=== PATIENT | male | born 1945 | race Two or more races ===

== ENCOUNTER 2016-12-10 17:44 | Inpatient (IN) | payer MEDICARE, OTHER ==
[~2016-12-10] VITALS: Ht 175.3 cm; Wt 79.4 kg
[2016-12-10] MEDS ORDERED: MORPHINE SULFATE INJ 2 MG/ML DISP.SYRIN IV ONE (18:00)
[2016-12-10] MEDS ORDERED: ONDANSETRON HCL/PF 4 MG/2 ML VIAL IVP ONE (18:00)
[2016-12-10] MEDS ORDERED: IV NS 0.9% 1,000 ML BAG IV ONE ×2 (18:00→19:00)
--- NOTE | 2016-12-10 18:00 | NUR ---
PATIENT BIB RA D/T LEFT LOWER EXTREMITY PAIN AND DIARRHEA X 5 DAYS. PATIENT IS A/OX 3. BREATHING EVEN AND UNLABORED ON ROOM AIR. NO SOB. BP RUNNING LOW, SBP 80'S. SAFETY AND COMFORT MEASURES IN PLACE. AWAITING MD ORDERS.
[2016-12-10] MEDS ORDERED: IV SET PRIMARY 1 EA INFUS.SET MC ONE (18:06)
[2016-12-10] MEDS ORDERED: IV NS 0.9% 1,000 ML ONE ×2 (18:06→18:57)
[2016-12-10] MEDS ORDERED: MORPHINE SULFATE INJ 4 MG/ML DISP.SYRIN ONE (18:06)
[2016-12-10] MEDS ORDERED: ONDANSETRON HCL/PF 4 MG/2 ML VIAL ONE (18:06)
[2016-12-10 18:09] LABS: BASOPHILS # (AUTO) 0.1 /CMM (0.0-0.2); BASOPHILS % (AUTO) 0.4 % (0.0-2.0); EOSINOPHILS % (AUTO) 0.2 % (0.0-6.0); HEMATOCRIT 35 % (39-51); HEMOGLOBIN 11.8 g/dL (13.5-17.5); LYMPHOCYTES # (AUTO) 3.4 /CMM (0.8-4.8); MEAN CORPUSCULAR HEMOGLOBIN 31 PG (26.0-33.0); MEAN CORPUSCULAR HGB CONC 34 g/dl (31.0-36.0); MEAN CORPUSCULAR VOLUME 92 fL (80-96); MONOCYTES % (AUTO) 6.1 % (2.0-12.0); NEUTROPHILS # (AUTO) 12.4 /CMM (1.8-8.9); NEUTROPHILS % (AUTO) 73.3 % (43.0-81.0); PLATELET COUNT (AUTO) 595 /CMM (150-450); RDW COEFFICIENT OF VARIATION 14.6 (11.5-15.0); RED BLOOD CELL COUNT(AUTO) 3.75 MIL/uL (4.5-6.0); WHITE BLOOD COUNT (AUTO) 16.9 K/uL (4.3-11.0)
--- NOTE | 2016-12-10 18:10 | NUR ---
NEW IV INSERTED ON RIGHT FOREARM, 20 G. BLOOD DRAWN AND SENT TO LAB.
--- NOTE | 2016-12-10 18:20 | NUR ---
SECOND IV STARTED ON LEFT FOREARM, 18 G.
[2016-12-10 18:24] LABS: INR 1.1 (0.87-1.13); PROTHROMBIN TIME 11.5 SECS (9.5-12.7)
[2016-12-10 18:26] LABS: ALBUMIN 2.7 g/dL (3.4-5.0); BILIRUBIN,DIRECT 0.9 mg/dL (0.0-0.2); BILIRUBIN,TOTAL 1.4 mg/dL (0.2-1.0); CALCIUM, SERUM 8.5 mg/dL (8.5-10.1); CREATININE 2.2 mg/dL (0.6-1.3); TOTAL PROTEIN, SERUM 7.3 g/dL (6.4-8.2)
[2016-12-10 18:27] LABS: POTASSIUM 2.6 mmol/L (3.5-5.1)
--- NOTE | 2016-12-10 18:27 | NUR ---
NOTIFIED OF CRITICAL K+ 2.7 AND BUN 108.
--- NOTE | 2016-12-10 18:52 | NUR ---
MCKEON CATH INSERTED, 16 FR. 15ML URINE OUTPUT, LIGHT YELLOW, CLEAR.
--- NOTE | 2016-12-10 18:54 | NUR ---
XR AT BEDSIDE
[2016-12-10] MEDS ORDERED: POTASSIUM CL. PREMIX PERIPHER. 50 ML ONE ×4 (18:56→21:23)
[2016-12-10] MEDS ORDERED: IV SET PRIMARY PUMP SET 1 EA INFUS.SET MC ONE ×2 (18:57→21:21)
--- NOTE | 2016-12-10 18:59 | NUR ---
CALLED NURSING SUP. FOR TELE BED
--- NOTE | 2016-12-10 19:03 | NUR ---
CALLED (ORTHO DIRECTOR MEDICAL AFFAIRS), TRANSFERRED CALL TO
--- NOTE | 2016-12-10 19:04 | NUR ---
REPORT REC'D FROM NEVILLE ROSE FOR JOSH.
[2016-12-10] MEDS: POTASSIUM CL. PREMIX PERIPHER. 50 ML IV SCH ×4 (19:08→22:00)
--- NOTE | 2016-12-10 19:10 | NUR ---
ABILIO PAGED, ROB BROWN PAPER SORTER AND COUNTER
--- NOTE | 2016-12-10 19:16 | NUR ---
URINE OBTAINED AND SENT TO LAB.
--- NOTE | 2016-12-10 19:16 | NUR ---
REPORT GIVEN TO CARIE FOR JOSH.
[2016-12-10 19:17] LABS: APPEARANCE,URINE Clear (CLEAR); BILIRUBIN,URINE LARGE (NEGATIVE); BLOOD, URINE Small Ery/uL (NEGATIVE); COLOR,URINE Yellow (YELLOW); KETONES,URINE Trace (NEGATIVE); LEUKOCYTE ESTERASE ,URINE Negative (NEGATIVE); NITRITE, URINE Negative (NEGATIVE); PROTEIN,URINE 30 mg/dl (NEGATIVE); UGLUCOSE Negative (NEGATIVE)
[2016-12-10 19:31] LABS: RBC,URINE 0-2 /HPF (0-2); WBC,URINE 0-2 /HPF (0-3)
[2016-12-10 19:32] LABS: BACTERIA,URINE Moderate /HPF (None Seen); SQUAMOUS EPITHELIAL CELL,UR Few /HPF (None Seen)
--- NOTE | 2016-12-10 19:32 | NUR ---
[facility] REPAGED
--- NOTE | 2016-12-10 19:37 | NUR ---
DR. ESCOBAR IS SPEAKING TO Kimberly BROWN DNP.
--- NOTE | 2016-12-10 20:00 | NUR ---
CALLING REPORT TO TELE NURSE.
[2016-12-10] MEDS ORDERED: ONDANSETRON HCL/PF 4 MG/2 ML VIAL IVP PRN (20:30)
[2016-12-10] MEDS ORDERED: Z GUARD REMEDY 2 OZ OINT TP PRN (20:30)
[2016-12-10] MEDS ORDERED: ACETAMINOPHEN 325 MG TABLET PO PRN (20:30)
--- NOTE | 2016-12-10 20:30 | NUR ---
TELE/RN RECEIVE PATIENT FROM E.R. ACCOMPANIED BY FAMILY MEMBERS AWAKE, ALERT, ORIENTED, COMFORTABLE, NO C/O PAIN, NO SIGNS OF DISTRESS NOTED. ADMISSION DONE PER PROTOCOL, SKIN ASSESSMENT DONE, PHOTOS TAKEN ON ABNORMAL SKIN FINDINGS, TAUGHT THE USE OF CALL LIGHT, FALL PRECAUTION, INSTRUCTED TO USE CALL LIGHT IF HE NEEDS ASSISTANCE, VERBALIZED UNDERSTANDING. WILL MONITOR.
--- NOTE | 2016-12-10 20:41 | NUR ---
ENDORSED 4TH BAG OF POTASSIUM 10 MEQ TO TELE NURSE, NEVILLE ADAMES
[2016-12-10] MEDS ORDERED: POTASSIUM CHLORIDE 10 MEQ/50 ML PREMIXED IVPB FOR PERIPHERAL LINE IV ONE (21:30)
[2016-12-10] MEDS: Potassium Chloride 40 MEQ in IV NS 0.9% 1,000 ML IV PRN (21:40)
[2016-12-10] MEDS ORDERED: MORPHINE SULFATE INJ 2 MG/ML DISP.SYRIN ONE (21:52)
[2016-12-10] MEDS: MORPHINE SULFATE INJ 2 MG/ML DISP.SYRIN IV PRN (22:02)
[2016-12-10 22:20] VITALS: BP 103/59
--- NOTE | 2016-12-10 22:48 | NUR ---
TELE/RN POTASSIUM 10 MEQ IV NOT GIVEN, IT IS A DUPLICATE ORDER. MD ORDER IS 40 MEQ.
--- NOTE | 2016-12-11 00:56 | NUR ---
TELE/RN PATIENT SLEEPING AT THIS TIME, AROUSABLE, NO SIGNS OF DISTRESS NOTED, CALL LIGHT IN REACH.WILL CONTINUE TO MONITOR.
[2016-12-11 01:04] VITALS: BP 110/68
[2016-12-11] MEDS ORDERED: METRONIDAZOLE 500MG/ NS 100ML 500 MG in PREMIX 1 EA IV SCH ×2 (01:30→06:40)
[2016-12-11] MEDS ORDERED: LEVOFLOXACIN 500 MG /D5W 100ML 500 MG in PREMIX 1 EA IV SCH (01:30)
[2016-12-11] MEDS ORDERED: SECONDARY IV SET 1 EA INFUS.SET MC ONE ×3 (02:46→23:54)
[2016-12-11] MEDS ORDERED: LEVOFLOXACIN 500 MG /D5W 100ML 100 ML IV ONE (02:53)
[2016-12-11] MEDS ORDERED: METRONIDAZOLE 500MG/ NS 100ML 100 ML IV ONE (02:54)
[2016-12-11 02:59] LABS: EOSINOPHILS # (AUTO) 0.1 /CMM (0.0-0.7); EOSINOPHILS % (AUTO) 0.6 % (0.0-6.0); HEMATOCRIT 28 % (39-51); HEMOGLOBIN 9.6 g/dL (13.5-17.5); LYMPHOCYTES # (AUTO) 2.4 /CMM (0.8-4.8); LYMPHOCYTES % (AUTO) 14.5 % (20.0-44.0); MEAN CORPUSCULAR HEMOGLOBIN 32 PG (26.0-33.0); MEAN CORPUSCULAR HGB CONC 34 g/dl (31.0-36.0); MEAN CORPUSCULAR VOLUME 92 fL (80-96); MONOCYTES # (AUTO) 0.3 /CMM (0.1-1.30); MONOCYTES % (AUTO) 1.8 % (2.0-12.0); NEUTROPHILS # (AUTO) 13.9 /CMM (1.8-8.9); NEUTROPHILS % (AUTO) 83.1 % (43.0-81.0); PLATELET COUNT (AUTO) 426 /CMM (150-450); RED BLOOD CELL COUNT(AUTO) 3.05 MIL/uL (4.5-6.0); WHITE BLOOD COUNT (AUTO) 16.7 K/uL (4.3-11.0)
[2016-12-11 03:10] LABS: ALBUMIN 2.3 g/dL (3.4-5.0); CREATININE 1.7 mg/dL (0.6-1.3); MAGNESIUM 1.8 mg/dL (1.8-2.4); PHOSPHORUS 3.9 mg/dL (2.5-4.9); POTASSIUM 3.3 mmol/L (3.5-5.1); TOTAL PROTEIN, SERUM 6.1 g/dL (6.4-8.2)
[2016-12-11] MEDS: Potassium Chloride 40 MEQ in IV NS 0.9% 1,000 ML IV PRN (04:25)
[2016-12-11 04:45] VITALS: BP 96/58
[2016-12-11 04:48] LABS: THYROID STIMULATING HORMONE 0.706 uIU/mL (0.358-3.74)
--- NOTE | 2016-12-11 06:36 | NUR ---
TELE/RN AWAKE, ALERT, ORIENTED, COMFORTABLE, NO CHANGE IN CONDITION. ALL NEEDS ATTENDED AT THIS TIME. WILL CONTINUE TO MONITOR.
[2016-12-11] MEDS ORDERED: PANTOPRAZOLE 40 MG TABLET.DR PO SCH (07:30)
[2016-12-11] MEDS: METRONIDAZOLE 500MG/ NS 100ML 500 MG in PREMIX 1 EA IV SCH ×3 (07:34→21:42)
[2016-12-11 08:00] VITALS: BP_SYST 94; BP_DIAS 54; BP_DIAS 59
[2016-12-11] MEDS: HEPARIN SODIUM, PORCINE 5000 UNITS/1 ML VIAL SQ SCH ×2 (11:00→21:00)
--- NOTE | 2016-12-11 11:36 | NUR ---
WOUND CARE CONSULT: PT PRESENTS WITH DEEP TISSUE INJURIES WHICH ARE INTACT TO BILAT HEELS AND LEFT LATERAL ANKLE, PRESENT ON ADMISSION. PT REFUSED TO TURN FOR FULL SKIN ASSESSMENT BUT SACRAL AREA PHOTO SHOWS PURPLE AREA, SUGGESTING DTI, PRESENT ON ADMISSION. RECOMMENDATIONS MADE FOR SKIN PROTECTION. DISCUSSED WITH NURSING STAFF. PT ON MODESTA COMFORT GEL MATTRESS. RECOMMEND LOW AIRLOSS BED TO BE PLACED WHEN AVAILABLE. WILL SEE PRN. CHO IN AGREEMENT WITH PLAN OF CARE. Addendum: 12/11/16 at 1139 by RIVAS AGUILAR WNDNU Amended: Links added.
[2016-12-11 16:00] VITALS: BP 105/59
[2016-12-11] MEDS: MORPHINE SULFATE INJ 2 MG/ML DISP.SYRIN IV PRN (18:01)
[2016-12-11 18:32] VITALS: BP 94/59
--- NOTE | 2016-12-11 19:06 | NUR ---
PATIENT NOTED IN A STABLE CONDITION.ALL DUE MEDS WELL NURSING CARE GIVEN AND WELL TOLERATED.PAIN MEDICATION GIVEN AT 1801.PATIENT TOLERATED MEDICATION WELL..CONSENT NOTED IN ORDERS FOR INTRAMEDULLARY RODDING OF LEFT HIP.CDIFF RESULT IS STIL PENDING AT THIS TIME.REPORT GIVEN TO INCOMING NURSE .PATIENT IS NOTED STABLE
--- NOTE | 2016-12-11 19:30 | NUR ---
CULLET CRUSHER NOTE: PATIENT RESTING IN BED, NO ACUTE DISTRESS NOTED, FAMILY AT BEDSIDE. BREATHING EVEN AND UNLABORED, NO SOB NOTED. IV TO RFA IN PLACE, INFUSING NS WITH 40 MEQ KCL AT 125ML/HR. TELE READING SR 89. MCKEON CATHETER IN PLACE, EMPTY AT THIS TIME. PATIENT FOR PROCEDURE IN MORNING, INFORMED THAT PATIENT CAN NOT EAT OR DRINK AFTER MIDNIGHT. CONSENT TO BE SIGNED BY SON. ISOLATION PRECAUTION OBSERVED. BED LOCKED AND IN LOWEST POSITION, CALL LIGHT IN REACH. WILL CONTINUE TO MONITOR.
--- NOTE | 2016-12-11 20:30 | NUR ---
ELECTRONIC SEMICONDUCTOR PROCESSOR NOTE: PATIENT SON, NABIL, SIGNED CONSENT FOR INTRAMEDULLARY RODDING LEFT HIP PROCEDURE FOR TOMORROW MORNING. QUESTIONS ASKED REGARDING PROCEDURE INFORMED THAT MD WITH GO OVER MORE DETAILS OF PROCEDURE TOMORROW. FORMS FILED IN CHART. WILL CONTINUE TO MONITOR
[2016-12-11 20:52] VITALS: BP 105/62
[2016-12-11] MEDS ORDERED: LEVOFLOXACIN 250 MG /D5W 50 ML 250 MG in PREMIX 1 EA IV SCH (23:00)
[2016-12-12] VITALS (33 sets, daily range): BP systolic 85–130; BP diastolic 53–75
[2016-12-12] MEDS: METRONIDAZOLE 500MG/ NS 100ML 500 MG in PREMIX 1 EA IV SCH (05:52)
--- NOTE | 2016-12-12 06:05 | NUR ---
SHOW DOG TRAINER NOTE: PATIENT RESTING IN BED, NO ACUTE DISTRESS NOTED, FAMILY AT BEDSIDE. BREATHING EVEN AND UNLABORED, NO SOB NOTED. IV TO LFA IN PLACE, INFUSING NS WITH 40 MEQ KCL AT 125ML/HR. TELE READING SR 75. MCKEON CATHETER IN PLACE. PATIENT NPO SINCE MIDNIGHT FOR PROCEDURE IN MORNING. CONSENT SIGNED BY SON, IN CHART. ISOLATION PRECAUTION OBSERVED. BED LOCKED AND IN LOWEST POSITION, CALL LIGHT IN REACH. WILL ENDORSE TO DAY NURSE TO CONTINUE WITH PLAN OF CARE.
[2016-12-12 07:11] LABS: BASOPHILS % (AUTO) 0.1 % (0.0-2.0); EOSINOPHILS # (AUTO) 0.1 /CMM (0.0-0.7); EOSINOPHILS % (AUTO) 0.5 % (0.0-6.0); HEMATOCRIT 27 % (39-51); HEMOGLOBIN 8.9 g/dL (13.5-17.5); LYMPHOCYTES # (AUTO) 2.2 /CMM (0.8-4.8); LYMPHOCYTES % (AUTO) 14.2 % (20.0-44.0); MEAN CORPUSCULAR HEMOGLOBIN 32 PG (26.0-33.0); MEAN CORPUSCULAR HGB CONC 34 g/dl (31.0-36.0); MEAN CORPUSCULAR VOLUME 93 fL (80-96); MONOCYTES # (AUTO) 0.8 /CMM (0.1-1.30); MONOCYTES % (AUTO) 4.8 % (2.0-12.0); NEUTROPHILS # (AUTO) 12.7 /CMM (1.8-8.9); NEUTROPHILS % (AUTO) 80.4 % (43.0-81.0); PLATELET COUNT (AUTO) 356 /CMM (150-450); RDW COEFFICIENT OF VARIATION 15.6 (11.5-15.0); RED BLOOD CELL COUNT(AUTO) 2.84 MIL/uL (4.5-6.0); WHITE BLOOD COUNT (AUTO) 15.8 K/uL (4.3-11.0)
[2016-12-12 07:28] LABS: BILIRUBIN,TOTAL 0.7 mg/dL (0.2-1.0); CALCIUM, SERUM 8.2 mg/dL (8.5-10.1); CREATININE 1.1 mg/dL (0.6-1.3); MAGNESIUM 1.5 mg/dL (1.8-2.4); PHOSPHORUS 2.1 mg/dL (2.5-4.9); POTASSIUM 3.1 mmol/L (3.5-5.1); TOTAL PROTEIN, SERUM 5.6 g/dL (6.4-8.2)
[2016-12-12] MEDS ORDERED: BACITRACIN 50000 UNITS/VIAL ONE (07:40)
--- NOTE | 2016-12-12 07:43 | NUR ---
TELE/RN OPENING NOTES PT. IS IN BED AWAKE, A&OX3. SON IS AT BEDSIDE. TELE MONITOR READING SINUS RHYTHM WITH OCCASIONAL PJC'S AT 82 BPM. PT. IS NPO FOR SURGERY. PT. IS BREATHING UNLABORED ON ROOM AIR. NO S/S OF ACUTE DISTRESS. IV FLUIDS RUNNING AT 125 ML/HR. PT.'S SURGICAL PACKET CONSENT IS SIGNED AND COMPLETED. HEPARIN WAS HELD. PT. HAS MCKEON CATHETER WITH 250 ML OUTPUT OF CLEAR, AND GHAZALA URINE. BED IS IN LOW POSITION, 2 SIDE RAILS UP, AND CALL LIGHT WITHIN REACH. PT. IS PLANNED TO HAVE SURGERY AT 0800.
--- NOTE | 2016-12-12 08:04 | NUR ---
TELE/RN PT. LEFT ROOM PT. LEFT ROOM FOR SURGERY. MCKEON OUTPUT 700 ML OF CLEAR, GHAZALA URINE. PT. WAS CLEANED AND DIAPER WAS CHANGED. PT. HAD 1 BOWEL MOVEMENT.
[2016-12-12] MEDS ORDERED: ANESTHESIA TRAY IN PYXIS 1 EA TRAY MC ONE (10:13)
[2016-12-12] MEDS ORDERED: FENTANYL PF 100MCG/2ML AMPUL ONE (10:15)
--- NOTE | 2016-12-12 10:49 | NUR ---
CALLED DOWN FOR PATIENT , NURSE STATED HE WAS IN SURGERY, AND TO BE TRANSFERED TO ICU. CALLED, ICU PATIENT HAD NOT ARRIVED YET. ASKED TO BE CALLED WHEN PATIENT IS READY FOR EXAM.
--- NOTE | 2016-12-12 10:50 | NUR ---
FELT PAD CUTTER; TRANSFER TRANSFER IN PT S/P LEFT HIP SURGERY. PT PLACED ON CARDIAC MONITO SHOWING SINUS TACHY CARDIA, LOW B/P NOTED. PT CURRENTLY RECEIVING IV NORMAL SALINE BOLUS. PT C/O SEVER ABD PAIN PT IS MOANING AND STATING THAT ABD IS IN A LOT OF PAIN 03/16. WILL REVIEW ORDERS AND NOTIFY PRIMARY REGARDING PTS ABD PAIN AND LOW BP
[2016-12-12] MEDS ORDERED: IV SET PRIMARY PUMP SET 1 EA INFUS.SET MC ONE ×4 (10:56→19:41)
[2016-12-12] MEDS ORDERED: IV NS 0.9% 1,000 ML ONE (10:56)
[2016-12-12] MEDS ORDERED: NOREPINEPHRINE 16 MG in IV D5W 500 ML IV PRN (11:00)
[2016-12-12] MEDS ORDERED: IV NS 0.9% 1,000 ML IV PRN (11:00)
[2016-12-12] MEDS ORDERED: IV NS 0.9% 1,000 ML BAG IV PRN (11:00)
[2016-12-12] MEDS ORDERED: POTASSIUM PHOSPHATE MM 15 MMOL in IV D5W 250 ML IV SCH (11:00)
[2016-12-12 11:13] LABS: ABG BASE EXCESS -11.5 mmol/L; ABG OXYGEN SATURATION 97.4 % (92.0-98.5); ABG PH 7.383 (7.350-7.450); ABG PO2 112.4 mmHg (75.0-100.0); AaDO2 221.6 mmHg; COHb 1.2 % (0.5-1.5); MetHb 0.9 % (0.0-1.5); O2Hb 95.4 % (94.0-97.0); SITE, ABG Right Radial; VENT MODE, BG simple mask
[2016-12-12] MEDS ORDERED: FEE PK DOSING 1 MIN EA MC ONE (11:16)
--- NOTE | 2016-12-12 11:30 | NUR ---
JUNIOR ORACLE DBA; PRIMARY/ CARDIO DR. FERNÁNDEZ AND Colleen ESCUDERO YARDER OPERATOR AT BEDSIDE UPDATE WAS GIVEN. DISCUSSED REGARDING PT ABD PAIN, AND LOW B/P. NEW ORDERS GIVEN TO INSERT NG TUBE AND ONCE IV BOLUS COMPLETED TO START LEVOPHED DRIP IF BLOOD PRESSURE REMAINS LOWER THAN 90. ORDERS ENTERED. PTS SON AT BEDSIDE UPDATE GIVEN.
--- NOTE | 2016-12-12 11:41 | NUR ---
pt's nurse states she will call when pt is more stable.
--- NOTE | 2016-12-12 11:42 | NUR ---
RNICU; GI ATTEMPT TO PLACE NG TUBE UNABLE TO PLACE, UNABLE TO GO TROUGH NASAL PASSAGE WAY. Colleen ESCUDERO CONSTRUCTION SAFETY CONSULTANT AWARE. PT STATES THAT ABD PAIN SUBSIDE.
[2016-12-12 12:08] LABS: HEMATOCRIT 31 % (39-51); HEMOGLOBIN 10.3 g/dL (13.5-17.5); LYMPHOCYTES # (AUTO) 2.7 /CMM (0.8-4.8); LYMPHOCYTES % (AUTO) 6.8 % (20.0-44.0); MEAN CORPUSCULAR HEMOGLOBIN 31 PG (26.0-33.0); MEAN CORPUSCULAR HGB CONC 33 g/dl (31.0-36.0); MEAN CORPUSCULAR VOLUME 94 fL (80-96); MONOCYTES # (AUTO) 0.4 /CMM (0.1-1.30); MONOCYTES % (AUTO) 1.1 % (2.0-12.0); NEUTROPHILS # (AUTO) 35.9 /CMM (1.8-8.9); NEUTROPHILS % (AUTO) 92.1 % (43.0-81.0); PLATELET COUNT (AUTO) 427 /CMM (150-450); RDW COEFFICIENT OF VARIATION 15.8 (11.5-15.0); RED BLOOD CELL COUNT(AUTO) 3.32 MIL/uL (4.5-6.0)
[2016-12-12] MEDS: Magnesium 1GM/D5W 100ML PREMIX 100 ML IV SCH ×2 (12:13→13:56)
[2016-12-12] MEDS: MORPHINE SULFATE INJ 2 MG/ML DISP.SYRIN IV PRN (12:15)
[2016-12-12 12:19] LABS: ALANINE AMINOTRANSFERASE 8 U/L (12-78); ALBUMIN 1.8 g/dL (3.4-5.0); ALKALINE PHOSPHATASE 71 U/L (46-116); AMYLASE 21 U/L (25-115); ASPARTATE AMINOTRANSFERASE 13 U/L (15-37); BILIRUBIN,TOTAL 0.9 mg/dL (0.2-1.0); CALCIUM, SERUM 7.7 mg/dL (8.5-10.1); CARBON DIOXIDE 14 mmol/L (21-32); CHLORIDE 111 mmol/L (98-107); CREATININE 1.2 mg/dL (0.6-1.3); GLUCOSE 158 mg/dL (74-106); LIPASE 65 U/L (73-393); POTASSIUM 2.9 mmol/L (3.5-5.1); SODIUM SERUM 144 mmol/L (136-145); UREA NITROGEN, BLOOD 51 mg/dL (7-18)
[2016-12-12 12:21] LABS: TROPONIN I < 0.017 ng/mL (0.00-0.056)
[2016-12-12] MEDS: VANCOMYCIN 1 GM in IV D5W 250 ML IV SCH (12:41)
[2016-12-12] MEDS: POTASSIUM PHOSPHATE MM 7.5 MMOL in IV D5W 100 ML IV SCH ×2 (12:42→15:42)
[2016-12-12 12:55] LABS: BAND % (MANUAL) 13 % (0.0-5.0); LYMPHOCYTES % (MANUAL) 10 % (16-48); MONOCYTES % (MANUAL) 2 % (0-11.0); NEUTROPHILS % (MANUAL) 75 (42-76)
[2016-12-12] MEDS ORDERED: CT SWABBABLE VALVE TRANS SET 1 EA INFUS.SET MC ONE (12:55)
[2016-12-12] MEDS ORDERED: IV NS 0.9% 250 ML IV ONE (12:55)
[2016-12-12] MEDS ORDERED: IOHEXOL-300 100 ML VIAL IV ONE (12:56)
--- NOTE | 2016-12-12 13:30 | NUR ---
TAX EXAMINER; CT ABD CT OF PELVIS ABD WITH CONTRAST COMPLETED. PT TOLERATED WELL. FAMILY AT BEDSIDE UPDATE WAS GIVEN. DISCUSSED THAT RESULTS OF CT WOULD TAKE A COUPLE OF HRS TO BE READ. PT VERBALIZES UNDERSTANDING.
[2016-12-12] MEDS ORDERED: SECONDARY IV SET 1 EA INFUS.SET MC ONE (13:42)
[2016-12-12] MEDS: IV NS 0.9% 1,000 ML IV PRN (13:55)
[2016-12-12] MEDS: PIPERACILLIN /TAZOBACTAM 3.375 G in IV D5W 50 ML IV SCH ×2 (13:55→17:35)
[2016-12-12] MEDS: POTASSIUM CL. PREMIX PERIPHER. 50 ML IV SCH ×4 (13:56→18:30)
[2016-12-12 14:37] LABS: BILIRUBIN,DIRECT 0.3 mg/dL (0.0-0.2)
--- NOTE | 2016-12-12 14:40 | NUR ---
CT ABDOMEN AND PELVIS D/W RANJANA ESCUDERO, DR CABRERA AND PT'S FAMILY. RANJANA ESCUDERO TO MAKE SURGICAL CONSULT AND INTERVENTIONAL RADIOLOGY ARRANGEMENTS REGARDING CT ABDOMEN FINDINGS. FAMILY WILL NOT CONSENT TO ANY PROCEDURES UNTIL A SURGEON CONSULTS ON THE PT
[2016-12-12] MEDS: PANTOPRAZOLE 40 MG VIAL IV SCH (15:07)
[2016-12-12] MEDS ORDERED: Z GUARD REMEDY 4 OZ OINT TP PRN (16:00)
[2016-12-12] MEDS: MORPHINE SULFATE INJ 4 MG/ML DISP.SYRIN IV PRN ×3 (16:32→22:36)
[2016-12-12 16:40] LABS: INR 1.24 (0.87-1.13); PROTHROMBIN TIME 13.4 SECS (9.5-12.7)
[2016-12-12] MEDS ORDERED: ANCEF 1 GM/50 ML D5W IV SCH ×2 (17:00)
--- NOTE | 2016-12-12 17:03 | NUR ---
RUBBER OFF; PT IS REFUSING TO BE TURNED, DUE TO SEVER PAIN TO HIP. PT PREMEDICATED PRIOR TO REPOSITIONING, EDUCATION GIVEN REGARDING SKIN INTEGRITY, PT CONTINUES TO REFUSE TO BE RE-POSITION. PT ON [facility] CARMEN
--- NOTE | 2016-12-12 19:14 | NUR ---
ASSISTANT ADMINISTRATOR; PT REQUESTING FOR DENTURES. PT BELONGING LIST REVIEWED. TELEMETRY NURSE CALLED. SPOKE WITH LEEROY LOZADA. STATING THAT PT HAD DENTURES IN AM. DENTURES NOT IN PT ROOM IN 3W. PT DID NOT COME WITH DENTURES POST-OP.CONFIRMED WITH FAMILY THAT DENTURES WERE NOT TAKEN HOME. NURSING WATER REUSE PROGRAM MANAGER JINNY MADE AWARE OF MISSING DENTURES.
[2016-12-12] MEDS ORDERED: ALBUMIN 25% 100 ML IV ONE (19:43)
[2016-12-12] MEDS: ALBUMIN 25% 25 GM in PREMIX 1 EA IV SCH (19:48)
--- NOTE | 2016-12-12 20:30 | NUR ---
YOUTH DEVELOPMENT SPECIALIST NOTES RECEIVED PT IN BED, AWAKE, A/O X4. GREENLANDIC SPEAKING. ON ROOM AIR, [place] WELL. S/P LEFT HIP ORIF (12/12/16). RIGHT DORSALIS PEDIS PULSES +3, LEFT DORSALIS PEDIS +2. NO EXCESSIVE BLEEDING NOTED AT THE INCISION LOCATIONS. TELE READS SR IN 80s. PT REPORTED SHARP INTERMITTENT ABDOMINAL PAIN AT RIGHT LOWER QUADRANT OF 8/10 LASTING APPROXIMATELY 30 SECOND EVERY TIME. ABDOMEN SOFT BUT TENDER UPON PALPATION. CT REVEALS ABSCESS AT right perirectal and presacral space. PRN PAIN MED WILL BE GIVEN NEEDED AND TOLERATED. MCKEON CATH IN PLACE, DRAINING WELL TO YELLOW URINE. IV SITES AT LFA 18G AND RFA 20G, RUNNING NS AT 125 ML/HR. HOB SLIGHTLY ELEVATED REQUESTED BY PT. PT REFUSED TO BE TURNED AT THIS TIME EVEN AFTER EDUCATION PROVIDED. PT ALSO REFUSED CBC, BMP, AND LACTIC ACID BLOOD DRAW AT THIS TIME DUE TO INTOLERANCE TO PAIN. PT AGREED TO MIDLINE INSERTION WITH LIDOCAINE BLOOD DRAW ACCESS LINE.
--- NOTE | 2016-12-12 22:15 | NUR ---
PRINCIPAL SECURITY ARCHITECT NOTES CT SPECIALIST JORJE CALLED TO GET PATIENT UPDATES AND CHECK ON CONSENT FOR TOMORROW'S PROCEDURE REGARDING ABDOMINAL ABSCESS. AT THIS TIME, FAMILY HAS NOT SIGNED OR AGREED TO CONSENT. FAMILY WANTS TO TALK TO SURGEON PRIOR PROVIDING CONSENT. DR CORBETT CONTACTED AND MADE AWARE OF SITUATION. PER DR CORBETT, HE WILL BE HERE IN THE MORNING TO DISCUSS POC AND ANSWER QUESTIONS WITH PT AND FAMILY. JORJE CONTACTED AND MADE AWARE OF DR CORBETT'S RESPONSE. PER JORJE, HE WILL BE HERE IN THE MORNING WELL.
--- NOTE | 2016-12-12 22:30 | NUR ---
MUSIC LIBRARY ASSISTANT NOTES PT'S SON AT BEDSIDE. PT AND PT'S SON STILL UNSURE OF BEST OPTION FOR POC. MADE AWARE THAT DR CORBETT AND CT SPECIALIST JORJE WILL BE HERE IN THE MORNING. PT'S SON STATES HE WILL BE HERE AT 0800. PT'S DENTURES STILL NOT FOUND. 3W CONSUMER AFFAIRS SPECIALIST, STATES SHE WILL FOLLOW UP WITH MORNING CONSUMER LENDER TOMORROW.
[2016-12-13] VITALS (46 sets, daily range): BP systolic 90–139; BP diastolic 43–65
[2016-12-13] MEDS: VANCOMYCIN 1 GM in IV D5W 250 ML IV SCH ×3 (00:36→15:15)
[2016-12-13] MEDS: IV NS 0.9% 1,000 ML IV PRN ×2 (00:36→23:55)
[2016-12-13] MEDS: PIPERACILLIN /TAZOBACTAM 3.375 G in IV D5W 50 ML IV SCH ×5 (00:36→22:04)
[2016-12-13] MEDS ORDERED: SECONDARY IV SET 1 EA INFUS.SET MC ONE (00:40)
--- NOTE | 2016-12-13 00:40 | NUR ---
PROFESSOR OF HISTORICAL THEOLOGY NOTES DISCUSSED IMPORTANCE OF LAB DRAWS AND EDUCATED PT REGARDING NEED FOR FREQUENT DRAWS. PT AGREED TO HAVE BLOOD DRAWN.
[2016-12-13 00:49] LABS: BASOPHILS % (AUTO) 0.1 % (0.0-2.0); EOSINOPHILS % (AUTO) 0.2 % (0.0-6.0); HEMATOCRIT 24 % (39-51); LYMPHOCYTES # (AUTO) 1.2 /CMM (0.8-4.8); LYMPHOCYTES % (AUTO) 7.5 % (20.0-44.0); MEAN CORPUSCULAR HEMOGLOBIN 32 PG (26.0-33.0); MEAN CORPUSCULAR HGB CONC 33 g/dl (31.0-36.0); MEAN CORPUSCULAR VOLUME 94 fL (80-96); MONOCYTES # (AUTO) 0.8 /CMM (0.1-1.30); MONOCYTES % (AUTO) 5.3 % (2.0-12.0); NEUTROPHILS # (AUTO) 13.7 /CMM (1.8-8.9); NEUTROPHILS % (AUTO) 86.9 % (43.0-81.0); PLATELET COUNT (AUTO) 325 /CMM (150-450); RDW COEFFICIENT OF VARIATION 15.3 (11.5-15.0); RED BLOOD CELL COUNT(AUTO) 2.55 MIL/uL (4.5-6.0); WHITE BLOOD COUNT (AUTO) 15.7 K/uL (4.3-11.0)
[2016-12-13] MEDS: MORPHINE SULFATE INJ 4 MG/ML DISP.SYRIN IV PRN ×4 (00:54→16:51)
[2016-12-13 00:57] LABS: CALCIUM, SERUM 7.7 mg/dL (8.5-10.1); CREATININE 1.2 mg/dL (0.6-1.3); POTASSIUM 3.8 mmol/L (3.5-5.1)
[2016-12-13 04:41] LABS: BASOPHILS % (AUTO) 0.2 % (0.0-2.0); EOSINOPHILS # (AUTO) 0.2 /CMM (0.0-0.7); EOSINOPHILS % (AUTO) 0.9 % (0.0-6.0); HEMATOCRIT 24 % (39-51); LYMPHOCYTES # (AUTO) 1.6 /CMM (0.8-4.8); LYMPHOCYTES % (AUTO) 9.4 % (20.0-44.0); MEAN CORPUSCULAR HEMOGLOBIN 32 PG (26.0-33.0); MEAN CORPUSCULAR HGB CONC 34 g/dl (31.0-36.0); MEAN CORPUSCULAR VOLUME 94 fL (80-96); MONOCYTES # (AUTO) 0.9 /CMM (0.1-1.30); MONOCYTES % (AUTO) 5.1 % (2.0-12.0); NEUTROPHILS # (AUTO) 14.4 /CMM (1.8-8.9); NEUTROPHILS % (AUTO) 84.4 % (43.0-81.0); PLATELET COUNT (AUTO) 342 /CMM (150-450); RDW COEFFICIENT OF VARIATION 15.7 (11.5-15.0); RED BLOOD CELL COUNT(AUTO) 2.54 MIL/uL (4.5-6.0); WHITE BLOOD COUNT (AUTO) 17.1 K/uL (4.3-11.0)
[2016-12-13 05:09] LABS: ALBUMIN 2.2 g/dL (3.4-5.0); BILIRUBIN,TOTAL 0.7 mg/dL (0.2-1.0); CALCIUM, SERUM 7.8 mg/dL (8.5-10.1); CREATININE 1.2 mg/dL (0.6-1.3); MAGNESIUM 1.7 mg/dL (1.8-2.4); PHOSPHORUS 2.9 mg/dL (2.5-4.9); POTASSIUM 3.4 mmol/L (3.5-5.1); TOTAL PROTEIN, SERUM 5.2 g/dL (6.4-8.2)
[2016-12-13 05:15] LABS: BAND % (MANUAL) 15 % (0.0-5.0); LYMPHOCYTES % (MANUAL) 9 % (16-48); MONOCYTES % (MANUAL) 7 % (0-11.0); NEUTROPHILS % (MANUAL) 68 (42-76)
[2016-12-13 05:16] LABS: EOSINOPHILS % (MANUAL) 1 % (0-4)
--- NOTE | 2016-12-13 07:35 | NUR ---
DRIVER LIFTER OF SANITATION TRUCK; ASSESSMENT RECEIVED PT AWAKE AND ORIENTED X 3, UZBEK SPEAKING, BUT ABLE TO UNDERSTAND AND COMMUNICATE WITH LITTLE SWISS. PT C/O R LOWER QUADRANT ABD PAIN 11/14 WILL REVIEW MEDICATION. UZBEK SPEAKING NURSE (JEAN RN) AT BEDSIDE STATING THAT PT SAYS HE IS IN PAIN WHEN HE FEELS THE URGE TO URINATE. DISCUSSED WITH PT THAT HE HAS MCKEON CATH DRAINING. PT NODS WITH UNDERSTANDING. PT HAS BEEN REFUSING BLOOD DRAWS DUE TO PAIN WITH DRAWS, WILL NOTIFY MD FOR POSSIBLE PICC LINE INSERTION. PT IS SCHEDULED FOR CT GUIDED DRAINAGE OF PERIRECTAL ABSCESS, FAMILY AT THIS TIME REFUSING AND WOULD LIKE TO SPEAK WITH SURGEON, DR. CORBETT, REGARDING POC. Addendum: 12/13/16 at 0846 by KIM ARMENTA RN PAIN' WHEN ASKED PT IF HE WOULD LIKE PAIN MEDICATION PT STATES "IM OK, NO MEDICINE". WILL CONTINUE TO MONITOR
--- NOTE | 2016-12-13 07:54 | NUR ---
DESIGN CELL ENGINEER; PICC LINE DISCUSSED WITH PT DAUGHTER TIGRE REGARDING THE NEED OF PICC LINE INSERTION, DUE TO PT POOR PERIPHERAL ACCESS, CONSTANT BLOOD DRAWS, AND POSSIBLE NEED FOR PRESSORS, DUE TO BORDERLINE BLOOD PRESSURE. DAUGHTER REFUSES PICC LINE INSERTION STATING "LET HIM RECOVER FOR SURGERY, DON'T DO ANYTHING TO HIM, JUST GIVEN HIS ELECTROLYTE REPLACE AND HIS ANTIBIOTICS". CHARGE NURSE AND PICC NURSE MADE AWARE OF FAMILY DECISION.
[2016-12-13] MEDS: PANTOPRAZOLE 40 MG VIAL IV SCH (08:29)
[2016-12-13] MEDS: ALBUMIN 25% 25 GM in PREMIX 1 EA IV SCH (08:29)
[2016-12-13] MEDS ORDERED: ENOXAPARIN SODIUM 40 MG/0.4 ML DISP.SYRIN SQ SCH (09:00)
--- NOTE | 2016-12-13 09:26 | NUR ---
CUBING MACHINE TENDER; MD SURGEON DR. CORBETT AT BEDSIDE UPDATE WAS GIVEN. DR. CORBETT CALLED FAMILY AND SPOKE WITH TIGRE, DAUGHTER, ([phone]) OPTIONS WERE GIVEN REGARDING CT GUIDED PERCUTANEOUS REMOVAL OF ABSCESS OR SURGERY WITH ANESTHESIA TO REMOVE ABSCESS. PTS FAMILY CONTINUES TO REFUSE ANY TYPE OF TREAMENT. DISCUSSED WITH CHELLE REGARDING NPO STATUS ORDERS GIVEN TO START CLEAR LIQUID DIETS. WILL ENTER ORDER
[2016-12-13] MEDS: ASPIRIN 81 MG TAB.CHEW PO SCH (09:51)
[2016-12-13] MEDS: Magnesium 1GM/D5W 100ML PREMIX 100 ML IV SCH ×2 (09:51→11:00)
[2016-12-13] MEDS: POTASSIUM CL. PREMIX PERIPHER. 50 ML IV SCH ×2 (09:51→11:01)
--- NOTE | 2016-12-13 12:12 | NUR ---
CREDIT CONTROL ASSISTANT; IV NOTED IV TO LEFT ARM INFILTRATED AND LEAKING, PT C/O PAIN. IV D/C WITH CATHETER TIP INTACT. RIGHT IV HEPLOCK ASSESSED ABLE TO FLUSH NO INFILTRATION NOTE. PT C/O OF PAIN DOES NOT WANT TO CONTINUE IV INFUSION OF KCL OR MAGNESIUM. ABLE TO INFUSE 10MEQ OF KCL AND APPROXIMATELY 1.5 GM OF MAGNESIUM, PRIOR TO INFILTRATION. PT REFUSING ANTIBIOTICS AND TO RE-START NEW IV. Colleen ESCUDERO DIGITAL TECH NOTIFIED AND STATES THAT SHE WILL CALL FAMILY AND DISCUSS THE NEED FOR IV ACCESS.
[2016-12-13] MEDS ORDERED: CELE200C PO (14:20)
[2016-12-13] MEDS ORDERED: DULO20CA PO (14:20)
[2016-12-13] MEDS ORDERED: CALC1TAB91 PO (14:26)
[2016-12-13] MEDS ORDERED: HYDR28.316 RC (14:26)
[2016-12-13] MEDS ORDERED: TOLT4CAP PO (14:26)
[2016-12-13] MEDS ORDERED: CEPH500C2 PO (14:26)
[2016-12-13] MEDS ORDERED: CYAN10006 IM (14:26)
[2016-12-13] MEDS ORDERED: OMEG1CAP55 PO (14:26)
[2016-12-13] MEDS ORDERED: PRAS10TA5 PO (14:26)
[2016-12-13] MEDS ORDERED: MECL-102 PO (14:26)
[2016-12-13] MEDS ORDERED: FLUO60SO3 TP (14:26)
[2016-12-13] MEDS ORDERED: EZET10TA PO (14:26)
[2016-12-13] MEDS ORDERED: FENO134C PO (14:26)
[2016-12-13] MEDS ORDERED: ROSU10TA PO (14:26)
--- NOTE | 2016-12-13 14:26 | NUR ---
INDUSTRIAL REFRIGERATION MECHANIC; MED REC family at bedside. update was given. discussed the need of an iv access and are agreeing to central line placement. family able to provide list of home medications stating that pt has not take any of his medications for over 3months
--- NOTE | 2016-12-13 15:24 | NUR ---
CREAM CHEESE MAKER; IV INSERTION Colleen Silva NP and DR. So at bedside with family discussing central line insertion. Now family is refusing for central line and wants only peripheral lines or a midline. Colleen Silva NP able to insert iv to right AC 22g. Spoke with family regarding its a poor IV access, but will be able to use to administer antibiotics, until midline is inserted.
--- NOTE | 2016-12-13 18:23 | NUR ---
DIRECTORY CLERK; MIDLINE NOTED MIDLINE TO UPPER ARM INFILTRATED. PT C/O PAIN AND BURNING. IV D/C WITH CATHETER TIP INTACT. Colleen ESCUDERO NP MADE AWARE.
--- NOTE | 2016-12-13 19:30 | NUR ---
RN INITIAL NOTES RECEIVED PT AWAKE ON BED, A/O X3, MAINLY PASHTO SPEAKING. ON ROOM AIR, SATURATING WELL. CURRENTLY SR ON THE MONITOR, HR 70'S. MCKEON CATH INTACT. RIGHT UPPER ARM NOTED TO HAVE SLIGHT SWELLING AND REDNESS FROM PRIOR INFILTRATION FROM NEW MIDLINE (MIDLINE REMOVED). RIGHT AC 22G NOTED, FLUSHED AND PATENT, NO S/S OF INFILTRATION/INFECTION, DRESSING CDI, WILL NOT START IV FLUIDS DUE TO FRAGILE NATURE OF PATIENT VEINS AND HIGH RATE OF IV FLUID. WAITING FOR DR BROWN FOR CENTRAL LINE INSERTION. MCKEON CATH NOTED. BED LOW AND LOCKED, SIDERAILS UP, CALL LIGHT WITHIN REACH. WILL MONITOR
--- NOTE | 2016-12-13 22:00 | NUR ---
RN NOTES PATIENT REFUSES TO BE TURNED/REPOSITIONED. EDUCATION PROVIDED BUT PATIENT CONTINUES TO REFUSE. WILL REINFORCE THROUGHOUT THE SHIFT
--- NOTE | 2016-12-13 23:00 | NUR ---
RN NOTES DR BROWN IN THE UNIT TO INSERT MIDLINE. MD INSERTED LEFT UPPER ARM MIDLINE. ALL PORTS FLUSHED WITH GOOD BLOOD RETURN. MD ALSO MADE AWARE THAT PATIENT IS NON-COMPLIANT WITH TURNING/REPOSITIONING
[2016-12-14] VITALS (39 sets, daily range): BP systolic 86–126; BP diastolic 42–92
[2016-12-14] MEDS: VANCOMYCIN 1 GM in IV D5W 250 ML IV SCH ×2 (02:49→21:26)
[2016-12-14] MEDS: MORPHINE SULFATE INJ 4 MG/ML DISP.SYRIN IV PRN ×2 (03:54→08:34)
[2016-12-14] MEDS: PIPERACILLIN /TAZOBACTAM 3.375 G in IV D5W 50 ML IV SCH ×4 (03:54→21:25)
[2016-12-14 04:31] LABS: BASOPHILS % (AUTO) 0.2 % (0.0-2.0); EOSINOPHILS # (AUTO) 0.4 /CMM (0.0-0.7); EOSINOPHILS % (AUTO) 2.4 % (0.0-6.0); HEMATOCRIT 21 % (39-51); HEMOGLOBIN 7.1 g/dL (13.5-17.5); LYMPHOCYTES # (AUTO) 2.2 /CMM (0.8-4.8); LYMPHOCYTES % (AUTO) 14.8 % (20.0-44.0); MEAN CORPUSCULAR HEMOGLOBIN 31 PG (26.0-33.0); MEAN CORPUSCULAR HGB CONC 34 g/dl (31.0-36.0); MEAN CORPUSCULAR VOLUME 93 fL (80-96); MONOCYTES # (AUTO) 0.2 /CMM (0.1-1.30); MONOCYTES % (AUTO) 1.2 % (2.0-12.0); NEUTROPHILS # (AUTO) 12.3 /CMM (1.8-8.9); NEUTROPHILS % (AUTO) 81.4 % (43.0-81.0); PLATELET COUNT (AUTO) 261 /CMM (150-450); RDW COEFFICIENT OF VARIATION 16.8 (11.5-15.0); WHITE BLOOD COUNT (AUTO) 15.1 K/uL (4.3-11.0)
--- NOTE | 2016-12-14 05:00 | NUR ---
RN NOTES CONVINCED PATIENT TO HAVE WOUND PICTURES TAKEN WELL GIVEN A BATH SINCE PATIENT HAD BOWEL MOVEMENT WELL. GAVE PATIENT PAIN MEDICINE PRIOR TO THE BATH. PATIENT TOLERATED WELL.
[2016-12-14 05:01] LABS: BAND % (MANUAL) 7 % (0.0-5.0); EOSINOPHILS % (MANUAL) 2 % (0-4); LYMPHOCYTES % (MANUAL) 16 % (16-48); MONOCYTES % (MANUAL) 2 % (0-11.0); NEUTROPHILS % (MANUAL) 73 (42-76)
[2016-12-14 05:32] LABS: CREATININE 1.1 mg/dL (0.6-1.3); MAGNESIUM 1.6 mg/dL (1.8-2.4); PHOSPHORUS 2.3 mg/dL (2.5-4.9); POTASSIUM 3.3 mmol/L (3.5-5.1)
--- NOTE | 2016-12-14 06:10 | NUR ---
RN NOTES NOTIFIED ON-CALL DR. BROWN ABOUT THE MORNING ABNORMAL VALUES OF HGB 7.1, HCT 21, K 3.3, PHOS 2.3, AND MAG 1.6. NO NEW ORDERS OF THE MOMENT. WILL ENDORSE TO AM SHIFT Addendum: 12/14/16 at 0629 by CAMILLE GR RN NEW ORDERS RECEIVED. WILL INITIATE
[2016-12-14] MEDS ORDERED: POTASSIUM CHLORIDE 20 MEQ TAB.PRT.SR PO ONE ×2 (06:15→06:30)
[2016-12-14] MEDS ORDERED: SECONDARY IV SET 1 EA INFUS.SET MC ONE ×2 (06:15→17:15)
[2016-12-14] MEDS ORDERED: Magnesium 1GM/D5W 100ML PREMIX 100 ML IV ONE (06:15)
[2016-12-14] MEDS: Magnesium 1GM/D5W 100ML PREMIX 100 ML IV SCH ×4 (06:21→10:38)
[2016-12-14] MEDS ORDERED: POTASSIUM PHOSPHATE MM 15 MMOL in IV D5W 250 ML IV SCH (06:30)
--- NOTE | 2016-12-14 06:45 | NUR ---
RN CLOSING NOTES PT REMAINS STABLE OF THE MOMENT. ALL DUE MEDS GIVEN, AM CARE PROVIDED. WILL ENDORSE CONTINUITY OF CARE TO AM RN
--- NOTE | 2016-12-14 07:45 | NUR ---
INITIAL ASSISTANT PROFESSOR OF BUSINESS NOTE RCVD PT AWAKE AND ALERT, CZECH SPEAKING MOSTLY. SHOWING NO S/O DISTRESS OR C/O PAIN AT THIS TIME. SR ON TELE. TOLERATING RA WELL SATURATION 100%. MCKEON DRAINING CLOUDY, GHAZALA COLORED URINE. HIREN MIDLINE C/D/I/PATENT. NO S/O INFILTRATION OR PHLEBITIS OBSERVED. IVF INFUSING. RIGHT AC #22 PAINFUL UPON FLUSHING. WILL DC. SURGICAL DRESSING OVER LEFT HIP AREA SOILED WITH DRAINAGE FROM WOUND. WILL CONTINUE TO MONITOR PT FOR SAFETY AND COMFORT. CALL LIGHT WITHIN REACH. BED IN LOW AND LOCKED POSITION.
[2016-12-14] MEDS ORDERED: Sodium Phosphate 15 MMOL in IV D5W 250 ML IV ONE (08:00)
[2016-12-14] MEDS ORDERED: IV SET PRIMARY PUMP SET 1 EA INFUS.SET MC ONE (08:01)
[2016-12-14] MEDS: PANTOPRAZOLE 40 MG VIAL IV SCH (08:10)
[2016-12-14] MEDS: ASPIRIN 81 MG TAB.CHEW PO SCH (08:10)
[2016-12-14] MEDS: POTASSIUM CL. PREMIX PERIPHER. 50 ML IV SCH ×2 (08:11→09:29)
--- NOTE | 2016-12-14 08:21 | NUR ---
WOUND CARE CONSULT: PT ADAMANTLY REFUSED TO TURN FOR SKIN ASSESSMENT. PURPLE AREA NOTED TO SACRUM IN ADMISSION PHOTO WELL BILATERAL HEELS AND LEFT ANKLE. PT ON FIRST STEP MATTRESS. PT TO BE TURNED AND REPOSITIONED EVERY 2 HRS PT CONDITION PERMITS, HEELS FLOATED. WILL SEE PT PT CONDITION PERMITS. MD IN AGREEMENT WITH PLAN OF CARE.
--- NOTE | 2016-12-14 10:17 | NUR ---
SNAILER NOTE PHOTOGRAPHIC PRINTER ASSESSMENT UNABLE TO BE DONE. PT REFUSES TO TURN TO EITHER SIDE. PT EVAL DONE. PT REFUSED TO REPOSITION WITH ASSISTANCE OF PHYSICAL THERAPIST WELL. JOSE CRUZ AWARE.
[2016-12-14] MEDS ORDERED: IV NS 0.9% 250 ML IV ONE (10:51)
[2016-12-14] MEDS ORDERED: BLOOD IV SET 1 EA INFUS.SET MC ONE (10:51)
--- NOTE | 2016-12-14 13:05 | NUR ---
PLANING MACHINE OPERATOR NOTE SPOKE WITH PT'S DAUGHTER TIGRE [phone] SHE CONSENTED FOR PT TO UNDERGO SURGERY WITH DR. CORBETT TOMORROW AM AND FOR BLOOD TRANSFUSION TO BE DONE TODAY. JOSE CRUZ WITNESSED CONSENT GIVEN OVER THE PHONE. PT CONTINUES TO REFUSE TO BE REPOSITIONED WHILE IN BED.
[2016-12-14] MEDS ORDERED: MAGNESIUM CITRATE 296 ML BOTTLE PO ONE (14:00)
--- NOTE | 2016-12-14 18:00 | NUR ---
Received patient from ICU as DEISY downgrade to 108. Patient pleasant, upper sorbian speaking with daughter at bedside for translation. Vitals stable, no complaints of any pain. Continued IVF NS @ 125 with secondary zosyn started in ICU. Na Phos IV given as ordered. Old IV on right AC removed as instructed by Jeannette LOZADA. SR on monitor. Continued mag citrate from ICU, given with ice as patient requested. Call light given and instructed on use.
--- NOTE | 2016-12-14 18:01 | NUR ---
MANAGER SITE NOTE PT TRANSFERRED TO DEISY VIA BED PER PROTOCOL. PT ACCOMPANIED BY . RECEIVED BY NEVILLE MG. SAURAV WAS ENDORSED TO ADMINISTER NAPHOS AND CONTINUE WITH MAG CITRATE ADMINISTRATION. PT TAKING SMALL SIP AT A TIME. PT AND PT'S INFORMED ABOUT BEING NPO AFTER MIDNIGHT AND TO FINISH MAG CITRATE PER MD ORDERS. PT ACKNOWLEDGED INFORMATION.
[2016-12-14 18:26] LABS: BASOPHILS % (AUTO) 0.1 % (0.0-2.0); EOSINOPHILS # (AUTO) 0.4 /CMM (0.0-0.7); EOSINOPHILS % (AUTO) 1.9 % (0.0-6.0); HEMATOCRIT 28 % (39-51); HEMOGLOBIN 9.6 g/dL (13.5-17.5); LYMPHOCYTES % (AUTO) 17.8 % (20.0-44.0); MEAN CORPUSCULAR HEMOGLOBIN 32 PG (26.0-33.0); MEAN CORPUSCULAR HGB CONC 34 g/dl (31.0-36.0); MEAN CORPUSCULAR VOLUME 94 fL (80-96); MONOCYTES # (AUTO) 1.1 /CMM (0.1-1.30); MONOCYTES % (AUTO) 5.1 % (2.0-12.0); NEUTROPHILS # (AUTO) 16.7 /CMM (1.8-8.9); NEUTROPHILS % (AUTO) 75.1 % (43.0-81.0); PLATELET COUNT (AUTO) 332 /CMM (150-450); RDW COEFFICIENT OF VARIATION 15.4 (11.5-15.0); RED BLOOD CELL COUNT(AUTO) 3.03 MIL/uL (4.5-6.0); WHITE BLOOD COUNT (AUTO) 22.3 K/uL (4.3-11.0)
[2016-12-14 19:19] LABS: BAND % (MANUAL) 6 % (0.0-5.0); EOSINOPHILS % (MANUAL) 3 % (0-4); LYMPHOCYTES % (MANUAL) 18 % (16-48); MONOCYTES % (MANUAL) 4 % (0-11.0); NEUTROPHILS % (MANUAL) 69 (42-76)
[2016-12-15] VITALS (11 sets, daily range): BP systolic 96–136; BP diastolic 52–82
[2016-12-15] MEDS: PIPERACILLIN /TAZOBACTAM 3.375 G in IV D5W 50 ML IV SCH ×4 (04:25→21:30)
[2016-12-15 06:49] LABS: BASOPHILS % (AUTO) 0.2 % (0.0-2.0); EOSINOPHILS # (AUTO) 0.4 /CMM (0.0-0.7); EOSINOPHILS % (AUTO) 2.1 % (0.0-6.0); HEMATOCRIT 26 % (39-51); HEMOGLOBIN 8.6 g/dL (13.5-17.5); LYMPHOCYTES # (AUTO) 3.5 /CMM (0.8-4.8); LYMPHOCYTES % (AUTO) 19.1 % (20.0-44.0); MEAN CORPUSCULAR HEMOGLOBIN 32 PG (26.0-33.0); MEAN CORPUSCULAR HGB CONC 34 g/dl (31.0-36.0); MEAN CORPUSCULAR VOLUME 94 fL (80-96); MONOCYTES # (AUTO) 0.6 /CMM (0.1-1.30); MONOCYTES % (AUTO) 3.1 % (2.0-12.0); NEUTROPHILS # (AUTO) 13.9 /CMM (1.8-8.9); NEUTROPHILS % (AUTO) 75.5 % (43.0-81.0); PLATELET COUNT (AUTO) 316 /CMM (150-450); RDW COEFFICIENT OF VARIATION 15.4 (11.5-15.0); RED BLOOD CELL COUNT(AUTO) 2.71 MIL/uL (4.5-6.0); WHITE BLOOD COUNT (AUTO) 18.4 K/uL (4.3-11.0)
[2016-12-15 06:59] LABS: INR 1.18 (0.87-1.13); PROTHROMBIN TIME 12.8 SECS (9.5-12.7)
[2016-12-15 07:19] LABS: CALCIUM, SERUM 7.8 mg/dL (8.5-10.1); CREATININE 0.9 mg/dL (0.6-1.3); MAGNESIUM 1.5 mg/dL (1.8-2.4); PHOSPHORUS 3.1 mg/dL (2.5-4.9); POTASSIUM 3.5 mmol/L (3.5-5.1)
--- NOTE | 2016-12-15 08:00 | NUR ---
DEISY RN NOTE PATIENT IN BED , ALL NEEDS ATTENDED ,ON RA, NO SOB NOTED , ON TELE MONITOR SR 88 ON MPO AT THIS TIME FOR SURGICAL PROCEDURE, LT UPPER ARM MIDLINE ON [employer] MATRASS FOR SKIN MANAGEMENT , BED IN LOWEST AND LOCKED POSITION ,M PLAN OF CARE DISCUSSED WITH PATIENT , WILL CONT TO MONITOR CLOSELY
--- NOTE | 2016-12-15 08:15 | NUR ---
CT PERCUTANEOUS DRAINAGE OF ABSCESS ON HOLD PER RN. PATIENT WILL HAVE AN ABSCESS DRAINED IN OR @1000 THIS MORNING.
[2016-12-15] MEDS: ASPIRIN 81 MG TAB.CHEW PO SCH (09:00)
[2016-12-15] MEDS: PANTOPRAZOLE 40 MG VIAL IV SCH (09:15)
--- NOTE | 2016-12-15 10:00 | NUR ---
DEISY RN NOTE ALMAS BM CLEAN DRY , ALL NEEDS ATTENDED ,TAKEN TO OR ORDERED
[2016-12-15 10:29] LABS: BAND % (MANUAL) 2 % (0.0-5.0); EOSINOPHILS % (MANUAL) 3 % (0-4); LYMPHOCYTES % (MANUAL) 16 % (16-48); MONOCYTES % (MANUAL) 6 % (0-11.0); NEUTROPHILS % (MANUAL) 73 (42-76)
[2016-12-15] MEDS ORDERED: BUPIVACAINE MPF 0.5% W/EPI INJ 30 ML VIAL ONE (10:31)
[2016-12-15] MEDS ORDERED: ALBUMIN 5% 250 ML IV ONE (10:32)
[2016-12-15] MEDS ORDERED: VASOPRESSIN INJ 20 UNIT/ML VIAL ONE ×2 (10:54→10:56)
[2016-12-15] MEDS ORDERED: FENTANYL PF 100MCG/2ML AMPUL ONE (11:43)
[2016-12-15] MEDS ORDERED: SECONDARY IV SET 1 EA INFUS.SET MC ONE (12:16)
[2016-12-15] MEDS: Magnesium 1GM/D5W 100ML PREMIX 100 ML IV SCH ×2 (12:23→13:34)
--- NOTE | 2016-12-15 12:29 | NUR ---
DEISY RN NOTE BACK FRPM OR , ANAL PACKING IN PLACE ,NO ACTIVE BLEEDING NOTED , NO SOB NOTED,NO C\O PAIN AT THIS TIME, SON AT BESIDE ,CALLED CASE MANAGE ABOUT DENTURES WAS LOST ON UNIT
--- NOTE | 2016-12-15 13:00 | NUR ---
TELE RNNOTE DRESSING ON ON LT HIP CHANGED, KEEP CLEAN DRY ,REFUSING LUNCH
[2016-12-15] MEDS: MORPHINE SULFATE INJ 4 MG/ML DISP.SYRIN IV PRN (14:02)
[2016-12-15] MEDS: VANCOMYCIN 1 GM in IV D5W 250 ML IV SCH (15:10)
[2016-12-15] MEDS: IV NS 0.9% 1,000 ML IV PRN ×2 (15:51→21:29)
--- NOTE | 2016-12-15 17:55 | NUR ---
SURGICAL PATHOLOGIST NOTE DRESSING ON R LT HIP WITH OOZING WITH MOD AMT OF DRAINAGE ,PA DUNN AWARE ACCORDING HIS NOTES KEEP CLEAN DRY , NOT IN ACUTE DISTRESS, STILL REFUSING TO EAT ENCOURAGED TO EAT , STILL REFUSING, WILL MONITOR CLOSELY
--- NOTE | 2016-12-15 18:42 | NUR ---
DEISY RN NOTE T 100.6 TYLENOL PO GIVEN WILL CONT TO MONITOR CLOSELY
--- NOTE | 2016-12-15 21:14 | NUR ---
FILENET ARCHITECT DEISY NON ADMIT STK MEDS FOR PT SAFETY.
[2016-12-16] VITALS: BP 113/75
[2016-12-16 04:00] VITALS: BP 122/66
[2016-12-16] MEDS: PIPERACILLIN /TAZOBACTAM 3.375 G in IV D5W 50 ML IV SCH ×2 (04:00→09:02)
[2016-12-16] MEDS: MORPHINE SULFATE INJ 4 MG/ML DISP.SYRIN IV PRN ×2 (05:07→13:57)
--- NOTE | 2016-12-16 06:43 | NUR ---
ORACLE FINANCIALS CONSULTANT PERIANAL PACKING REMOVED; PT TOLERATED WELL.
--- NOTE | 2016-12-16 07:00 | NUR ---
RN INITIAL NOTE REPORT RECEIVED FROM JONATHAN LOZADA PM NURSE FOR JOSH. PT A/O X4 INDONESIAN SPEAKING. TELE SR. PT RA NO C/O SOB. FC INTACT. IV MONA MIDLINE PATENT AND INTACT. NS @125 ML/HR. WILL CONTINUE TO MONITOR. ALL SAFETY MEASURES IN PLACE.
[2016-12-16] MEDS ORDERED: PANTOPRAZOLE 40 MG TABLET.DR PO SCH (07:30)
[2016-12-16] MEDS ORDERED: IV SET PRIMARY PUMP SET 1 EA INFUS.SET MC ONE (07:46)
[2016-12-16] MEDS ORDERED: SECONDARY IV SET 1 EA INFUS.SET MC ONE ×2 (07:47→11:21)
[2016-12-16 08:00] VITALS: BP 115/63
[2016-12-16 08:04] LABS: BASOPHILS % (AUTO) 0.1 % (0.0-2.0); EOSINOPHILS # (AUTO) 0.3 /CMM (0.0-0.7); EOSINOPHILS % (AUTO) 1.4 % (0.0-6.0); HEMATOCRIT 25 % (39-51); HEMOGLOBIN 8.5 g/dL (13.5-17.5); LYMPHOCYTES # (AUTO) 2.8 /CMM (0.8-4.8); LYMPHOCYTES % (AUTO) 14.1 % (20.0-44.0); MEAN CORPUSCULAR HEMOGLOBIN 32 PG (26.0-33.0); MEAN CORPUSCULAR HGB CONC 34 g/dl (31.0-36.0); MEAN CORPUSCULAR VOLUME 94 fL (80-96); MONOCYTES # (AUTO) 0.8 /CMM (0.1-1.30); NEUTROPHILS # (AUTO) 15.8 /CMM (1.8-8.9); NEUTROPHILS % (AUTO) 80.4 % (43.0-81.0); PLATELET COUNT (AUTO) 278 /CMM (150-450); RED BLOOD CELL COUNT(AUTO) 2.67 MIL/uL (4.5-6.0); WHITE BLOOD COUNT (AUTO) 19.6 K/uL (4.3-11.0)
[2016-12-16] MEDS: ASPIRIN 81 MG TAB.CHEW PO SCH (08:06)
[2016-12-16 08:25] LABS: CALCIUM, SERUM 7.6 mg/dL (8.5-10.1); CREATININE 0.9 mg/dL (0.6-1.3); MAGNESIUM 1.3 mg/dL (1.8-2.4); PHOSPHORUS 3.3 mg/dL (2.5-4.9); POTASSIUM 3.5 mmol/L (3.5-5.1)
[2016-12-16] MEDS: VANCOMYCIN 1 GM in IV D5W 250 ML IV SCH (09:48)
[2016-12-16 10:26] LABS: BAND % (MANUAL) 2 % (0.0-5.0); EOSINOPHILS % (MANUAL) 1 % (0-4); LYMPHOCYTES % (MANUAL) 13 % (16-48); MONOCYTES % (MANUAL) 3 % (0-11.0); NEUTROPHILS % (MANUAL) 81 (42-76)
[2016-12-16] MEDS: Magnesium 1GM/D5W 100ML PREMIX 100 ML IV SCH ×2 (11:28→12:32)
[2016-12-16 12:13] LABS: PTH, INTACT 23 pg/mL (15-65)
--- NOTE | 2016-12-16 14:40 | NUR ---
ELECTION JUDGE NOTE PT DC TO [facility] REPORT GIVEN TO EMT AND AMNA RN. PT TRANSFERRED VIA AMBULANCE. ID BAND REMOVED. MIDLINE IN PLACE DUE TO CONT ABX. FC REMOVED PER DR. WELSH. ALL DC INSTRUCTIONS GIVEN TO PT. PHOTOS TAKEN AND PUT IN CHART. ALL QUESTIONS ANSWERED PT CLEAN AND DRY. NO BELONGINGS ON THIS FLOOR.CALLED DAUGHTER DEBORAH TO CONFIRM DC. DENTURES MISPLACED ON 3 W PT IN RM 313. DAUGHTER AWARE. WOUND CARE RENDERED.
--- NOTE | 2016-12-16 15:30 | NUR ---
RN NOTE CALLED 3 W CHARGE NURSE AND EXPLAINED PT DENTURES MISSING PER SON NABIL. STATED SHE WOULD CALL BACK WITH INFORMATION.
[2016-12-17 12:11] LABS: CALCITRIOL VIT D,1, 25 DIHYDRO < 5.0 pg/mL (19.9-79.3)
== END 2016-12-16 15:00 | DRG 853 ==
LOC: ER 17:45 → TELE 20:06 → ICU 12-12 10:49 → TELE-TD 12-14 18:03 → TELE1 12-15 22:33 → MEDSG1 12-16 10:04
PROVIDERS: ADMIT Nurse Practitioner Acute Care; ATTEND Nurse Practitioner Acute Care
PROC: 0QS706Z Reposition Left Upper Femur with Intramedullary Internal Fixation Device, Open Approach (ICD-10-PCS; principal; 2016-12-12 08:00)
PROC: 05H533Z Insertion of Infusion Device into Right Subclavian Vein, Percutaneous Approach (ICD-10-PCS; 2016-12-13)
PROC: 30233N1 Transfusion of Nonautologous Red Blood Cells into Peripheral Vein, Percutaneous Approach (ICD-10-PCS; 2016-12-14)
PROC: 0D9P0ZZ Drainage of Rectum, Open Approach (ICD-10-PCS; 2016-12-15)
DX: A41.9 Sepsis, unspecified organism (principal); S72.142A Displaced intertrochanteric fracture of left femur, initial encounter for closed fracture; I21.4 Non-ST elevation (NSTEMI) myocardial infarction; N17.0 Acute kidney failure with tubular necrosis; S72.002A Fracture of unspecified part of neck of left femur, initial encounter for closed fracture; E44.0 Moderate protein-calorie malnutrition; E87.1 Hypo-osmolality and hyponatremia; K61.1 Rectal abscess; E87.2 Acidosis; K56.7 Ileus, unspecified; A04.9 Bacterial intestinal infection, unspecified; M46.28 Osteomyelitis of vertebra, sacral and sacrococcygeal region; E86.0 Dehydration; D64.9 Anemia, unspecified; E78.5 Hyperlipidemia, unspecified; E87.6 Hypokalemia; F17.210 Nicotine dependence, cigarettes, uncomplicated; I10 Essential (primary) hypertension; I25.10 Atherosclerotic heart disease of native coronary artery without angina pectoris; K21.9 Gastro-esophageal reflux disease without esophagitis; D75.89 Other specified diseases of blood and blood-forming organs; Z98.61 Coronary angioplasty status; E78.1 Pure hyperglyceridemia; Z68.25 Body mass index [BMI] 25.0-25.9, adult; X58.XXXA Exposure to other specified factors, initial encounter; Y93.9 Activity, unspecified; Y92.009 Unspecified place in unspecified non-institutional (private) residence as the place of occurrence of the external cause; Y99.9 Unspecified external cause status; R19.09 Other intra-abdominal and pelvic swelling, mass and lump; R21 Rash and other nonspecific skin eruption; L08.9 Local infection of the skin and subcutaneous tissue, unspecified; L89.620 Pressure ulcer of left heel, unstageable; L89.520 Pressure ulcer of left ankle, unstageable; L89.610 Pressure ulcer of right heel, unstageable; L85.3 Xerosis cutis; M20.42 Other hammer toe(s) (acquired), left foot; M20.41 Other hammer toe(s) (acquired), right foot; D17.9 Benign lipomatous neoplasm, unspecified
CPT/HCPCS: 36415; 36600; 71010-TC; 73020; 73502; 74000-TC; 80048-TC; 80053-TC; 80061-TC; 80076-TC; 80202-TC; 81000-TC; 82150-TC; 82248-TC; 82306; 82652; 83605-TC; 83690-TC; 83735-TC; 83970; 84100-TC; 84443-TC; 84484-TC; 85025-TC; 85610-TC; 85730-TC; 86850-TC; 86921-TC; 87040-TC; 87070-TC; 87081-TC; 87086-TC; 89055; 93307-TC; 94799-TC; 97001-TC; 97110-TC; 97530-TC; A4216; A4217; A4606; A6209; A6253; A6402; A9563; C1713; C1751; C9113; J0690; J1100; J1644; J1956; J2001; J2270; J2370; J2405; J2543; J2704; J3010; J3370; J3475; J3480; J3490; J7030; J7050; J7060; P9016-BL; P9045; P9047; Q9967; Z7610